=== PATIENT | male | born 2000 | race Caucasian/White ===

== ENCOUNTER 2023-02-02 15:45 | Emergency (ER) | payer SELFPAY ==
[2023-02-02 15:47] VITALS: BP 141/85; PULSE 74; RESP 16; TEMP 36.6; O2SAT 96
--- NOTE | 2023-02-02 17:00 | DI.RAD_ITS ---
Exam(s) XR ELBOW LT COMPLETE EXAM: XR ELBOW LT COMPLETE CLINICAL HISTORY: pain and swelling. TECHNIQUE: 2D digital imaging was performed. Three views. COMPARISON: No exams were available for comparison FINDINGS: BONES: Supracondylar fracture with mild impaction. Small comminuted fragments seen medially posterio rly. No additional fractures noted in the ulna or radius. No bony destructive lesion is seen. JOINTS: The elbow is normally aligned. A joint effusion is seen. SOFT TISSUE: Marked swelling. IMPRESSION: Supracondylar fracture. DATA REPOSITORY: RADIATION DOSE DELIVERED:
[2023-02-02] MEDS: oxyCODONE 5 mg/Acetaminophen 325 mg TAB 2 TAB PO (17:55)
--- NOTE | 2023-02-02 18:54 | W.ED.GENAD ---
Discharge Plan Disposition Patient Disposition: Home Condition: Stable Discharge Details Clinical Impression: Supracondylar fracture of humerus, closed Primary Care Provider: Brigitte,Local ED Provider: Florecita Gutierrez Home Meds and New Rx's Prescriptions: New oxycodone 5 mg tablet 5 mg PO Q8H PRNQty: 10 0RF Discharge Instructions Additional Instructions: Take oxycodone as prescribed as needed do not operate your vehicle while taking this medication Take Motrin and Tylenol every 6-8 hours, ibuprofen 600 mg every 8 hours, Tylenol 650 every 4-6 hours You have been placed on the orthopedic list for follow-up They will likely call you tomorrow Please return should you develop new or worsening complaints including strength or sensation change, dramatic change in pain, ice, elevate Referrals: Antwan Cabrera MD [ [facility] STAFF PHYSICIAN] - Discharge Data Discharge Date/Time-TO BE ENTERED AT DEPARTURE: 02/02/23 21:06 Medical Decision Making 22-year-old male with impacted supracondylar fracture to left elbow, neurovascularly intact after a mechanical ground-level fall per x-ray interpretation my review placed in a posterior Ortho-Glass splint and sling, remains neurovascularly intact pre and postprocedure Case was discussed with Dr. Gabriel, orthopedist who recommends close outpatient reassessment but does not indicate need for emergent surgery this evening, patient is placed on orthopedic list for follow-up, he will be in [place] for the next 3 weeks but does reside in [place] Ice, ibuprofen, oxycodone prescription with risk of addiction reviewed No clinical evidence of compartment syndrome, remains neurovascularly intact Medical Records Medical records reviewed: Yes I reviewed the patient's medical records. Lab Data Lab results reviewed: Yes I reviewed the patient's lab results. HPI General Date/Time Provider Initiated Documentation: 02/02/23 15:51. HPI Narrative: This 22-year-old male presents with report of left elbow pain. He reportedly fell on his hand on the left side while standing. He denies any strength or sensation change. He denies any head injury or any additional acquired injuries. He is otherwise reportedly healthy. He does not live locally. Related Data Home Medications Medication Instructions Recorded Confirmed oxycodone 5 mg tablet 5 mg PO Q8H PRN #10 tabs 02/02/23 Previous Rx's Medication Instructions Recorded oxycodone 5 mg tablet 5 mg PO Q8H PRN #10 tabs 02/02/23 Allergies Allergy/AdvReac Type Severity Reaction Status Date / Time No Known Allergies Allergy Unverified 02/02/23 15:51 General Stated Complaint: Orthopedic SHABNAM: 4 PFSH All Active Problems (Updated 02/02/23 @ 20:55 by CHANELLE Latham) Supracondylar fracture of humerus, closed (Acute) Social History Smoking/Tobacco Use Status: Never Smoking risk assessment performed?: Yes Drug use: Never Substance use type: does not use Housing: apartment Do you feel safe at home: Yes Do you feel safe in your relationship?: Yes Exam Narrative Exam Narrative: 22-year-old male, calm and cooperative, left elbow swelling, tenderness, decreased range of motion, no tenderness to left elbow or left wrist, neurovascularly intact, no evidence of open fracture, no ecchymosis, Course Vital Signs Vital signs: Vital Signs Temperature 36.6 C 02/02/23 15:47 Pulse 74 02/02/23 15:47 Respiratory Rate 16 02/02/23 15:47 Blood Pressure 141/85 H 02/02/23 15:47 Pulse Oximetry 96 02/02/23 15:47 Temperature 36.6 C 02/02/23 15:47 Temperature Source Skin 02/02/23 15:47 Pulse 74 02/02/23 15:47 Respiratory Rate 16 02/02/23 15:47 Respiratory Effort Normal, Non-Labored 02/02/23 17:57 Blood Pressure 141/85 H 02/02/23 15:47 Blood Pressure Position Sitting 02/02/23 15:47 Pulse Oximetry 96 02/02/23 15:47 Oxygen Delivery Method Room Air 02/02/23 15:47 Oxygen Flow Rate 0 02/02/23 15:47 Pain Level 5 02/02/23 15:47 Procedures Orthopedic Splinting/Casting Injury #1: Side: left Upper Extremity Injury Location: elbow Upper Extremity Immobilizer: posterior splint Additional Comments: Sling, remained neurovascularly intact pre and postprocedure
--- NOTE | 2023-02-02 19:31 | DI.VRAD_ITS ---
PROCEDURE INFORMATION: Exam: XR Left Elbow Exam date and time: 02/02/2023 6:57 PM Age: 22 years old Clinical indication: Injury or trauma; Work related; Bleeding/hemorrhage; Elbow; Left; Injury date: 02/02/23; Injury details: Fall, pain and swelling TECHNIQUE: Imaging protocol: Radiologic exam of the left elbow. Views: 3 or more views. COMPARISON: No relevant prior studies available. FINDINGS: Bones/joints: Comminuted supracondylar fracture with mild impaction. Osseous fragment measuring 3 mm adjacent to the medial condyle noted. Mild distraction of the fracture medially. There is a large joint effusion Soft tissues: Swelling noted surrounding the elbow and in the antecubital fossa IMPRESSION: Supracondylar fracture and 3 mm ossicle as described. Large joint effusion Dictated and Authenticated by: Renny Saenz MD. Ordering:BRISEYDA Bernabe MD
--- NOTE | 2023-02-03 14:36 | NUR.NOTE ---
Nursing Note: in chart for followup referral info for pt
== END 2023-02-02 21:06 | disposition home or self-care (01) ==
PROVIDERS: Emergency Provider Physician Assistant
DX: S42.412A Displaced simple supracondylar fracture without intercondylar fracture of left humerus, initial encounter for closed fracture (principal); W19.XXXA Unspecified fall, initial encounter
CPT/HCPCS: 29105; 99283; 73080; 99284